=== PATIENT | female | born 1945 | race Hispanic/Latino ===

== ENCOUNTER → 2022-12-19 | Outpatient (CLI) | payer MEDICARE, OTHER, SELFPAY ==
--- NOTE | 2022-12-19 14:13 | NEURO ---
NCS and/or EMG Patient Report Ordering Doctor: Michael Pat DATE OF SERVICE: 12/19/22 Bev presents for electrodiagnostic testing of the lower limbs. She has numbness and tingling in both legs, slightly worse on the left side. Symptoms have been present for several years. Electrodiagnostic findings: Left peroneal motor nerve demonstrates normal distal latency with reduced amplitude and normal conduction velocity. Right peroneal motor nerve demonstrates normal distal latency, amplitude and conduction velocity. Tibial responses are within normal limits. Normal tibial and peroneal F waves. H reflex normal bilaterally. Normal sural and superficial peroneal responses bilaterally. Medial plantar latency could not be obtained. On needle EMG, all muscles tested in the lower limbs showed no evidence of denervation with normal motor unit action potentials. Electrodiagnostic impression: This is an abnormal study in the lower limbs. 1. 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 There is no evidence for conduction block at the fibular head. 2. No electrodiagnostic evidence is noted for peripheral polyneuropathy. 3. No electrodiagnostic evidence is noted for lumbosacral radiculopathy.
== END | disposition home or self-care (01) ==
PROVIDERS: Visit Provider Family Medicine
DX: R20.0 Anesthesia of skin (principal); R20.2 Paresthesia of skin
CPT/HCPCS: 95886; 95912